=== PATIENT | male | born 1975 | race Caucasian/White ===

== ENCOUNTER → 2024-09-25 13:53 | Outpatient (BNVA) | payer OTHER, SELFPAY | DX: R50.9 Fever, unspecified (principal) | CPT/HCPCS: 87400 ==

== ENCOUNTER → 2024-10-03 08:54 | Outpatient (BNVA) | payer OTHER, SELFPAY | PROVIDERS: PCP Family Medicine; Visit Provider Family Medicine | DX: Z13.6 Encounter for screening for cardiovascular disorders (principal) | CPT/HCPCS: 80053; 80061; 85025 ==

== ENCOUNTER 2024-10-23 13:10 | Outpatient (CLI) | payer OTHER, SELFPAY ==
--- NOTE | 2024-10-23 13:30 | CT_ITS ---
WS: [id number] LDCT LUNG CANCER SCREENING TECHNIQUE: Noncontrast CT of the chest with coronal and sagittal reformatted images. CLINICAL INFORMATION: screening COMPARISON: None. DLP: 72.31 mGy.cm DIvol: Mean CTDIvol: 1.30 (mGy) All CT scans at [facility] use at least one of these dose optimization techniques: automated exposure control; mA and/or kV adjustment per patient size (includes targeted exams where dose is matched to clinical indication); or iterative reconstruction. FINDINGS: Traction bronchiectasis with patchy opacities in the anterior LEFT upper lobe with subsegmental atelectasis. This is nonspecific but likely inflammatory. Adjacent calcified granuloma. Patchy micronodules in the RIGHT middle lobe. Additional patchy nodular opacities in the LEFT lower lobe likely infectious or inflammatory. Recommend 3-month follow-up. Tiny noncalcified nodule RIGHT lower lobe. Scattered calcified granulomas. Mild thoracic curve. Normal caliber thoracic aorta. Calcified LEFT hilar and AP window lymph nodes. Adrenal glands are normal. CT/CT lung screening [id number] IMPRESSION: LUNG-RADS: 3-Probably Benign FOLLOW UP: 3 Month LDCT
== END 2024-10-23 13:11 | disposition home or self-care (01) ==
PROVIDERS: PCP Family Medicine; Visit Provider Family Medicine
DX: Z12.2 Encounter for screening for malignant neoplasm of respiratory organs (principal); F17.219 Nicotine dependence, cigarettes, with unspecified nicotine-induced disorders; J47.9 Bronchiectasis, uncomplicated; J98.11 Atelectasis; J84.10 Pulmonary fibrosis, unspecified; R91.8 Other nonspecific abnormal finding of lung field; M43.8X4 Other specified deforming dorsopathies, thoracic region; R59.0 Localized enlarged lymph nodes
CPT/HCPCS: 71271

== ENCOUNTER 2024-11-26 07:54 | Day surgery (SDC) | payer OTHER, SELFPAY ==
[2024-11-26 08:09] VITALS: BP 148/84; PULSE 75; RESP 18; TEMP 36.6; O2SAT 98; BMI 25.7
[2024-11-26] MEDS: sodium chloride 0.9% 1,000 ML 30 ML IV (08:17)
--- NOTE | 2024-11-26 08:29 | ANES.PREANE2 ---
Pre-Anesthetic Assessment Height/Weight: Height 1.85 m Weight 88.451 kg Temp Pulse Resp BP Pulse Ox O2 Del Method 97.9 F 75 18 148/84 98 Room Air 11/26/24 08:09 11/26/24 08:09 11/26/24 08:09 11/26/24 08:09 11/26/24 08:09 11/26/24 08:09 Preop Diagnosis: screening Operation Date: 11/26/24 09:00 Proposed Procedures p Colonoscopy 77275 [id number] Z12.11(Not Applicable) - Prosper Rose MD Was Beta David taken within 24 hours: N/A Was Clonidine taken within 24 hours: N/A Last intake: Intake Last Liquid Date 11/25/24 Last Liquid Time 23:00 Last Solid Date 11/24/24 Last Solid Time 19:00 Social Tobacco 1 pack(s) per day did not smoke today Exam alert, oriented x 3, clear to auscultation bilaterally and regular rate & rhythm Airway Submandibular: within normal limits Cervical ROM: within normal limits Mallampati: Class III Dentition: chipped Comments: Comments: full henriquez History/ROS No significant history except as noted Pulmonary Cough CV/HEM Hypertension Anesthetic Plan ASA status: 2 Anesthesia: MAC Risk of > 500 ml blood loss (7ml/kg in children): No Medications/Allergies Home Medications ?Medication ?Instructions ?Recorded ?Confirmed ?Last Taken ?Type No Known Home Medications 10/03/24 11/26/24 Unknown History Allergies Allergy/AdvReac Type Severity Reaction Status Date / Time No Known Allergies Allergy Unverified 10/11/24 09:18 Current Medications Generic Name Dose Route Start Last Admin Trade Name Freq PRN Reason Stop Dose Admin Sodium Chloride 1,000 mls @ 30 mls/hr 11/26/24 06:45 11/26/24 08:17 Sodium Chloride 0.9% IV 11/27/24 06:44 30 mls/hr .Q24H LOPEZ Administration PFSH Anesthesia Medical History Tobacco abuse counseling Tobacco use disorder, moderate, dependence Collar bone fracture Social History Smoking and tobacco/nicotine status: current every day tobacco/nicotine user (1 pack per day) cigarettes [ Other cigarette details: current 1 PPD. 35PY] Data Anesthesia Cardiac Studies: No Data to Display
--- NOTE | 2024-11-26 08:50 | W.PM.OPSFHP ---
Same Day Surgery H&P Indication for Procedure/HPI DATE OF PROCEDURE: November 26, 2024 CHIEF COMPLAINT/INDICATIONFOR SURGICAL PROCEDURE: screening colonoscopy PREOP DIAGNOSIS: screening colonoscopy PLANNED PROCEDURE: Operation Date: 11/26/24 09:00 Proposed Procedures p Colonoscopy [id number] G0121 Z12.11(Not Applicable) - Prosper Rose MD Medications/Allergies* Home Medications ?Medication ?Instructions ?Recorded ?Confirmed ?Type No Known Home Medications 10/03/24 11/26/24 History Allergies/Adverse Reactions Allergy/AdvReac Type Severity Reaction Status Date / Time No Known Allergies Allergy Unverified 10/11/24 09:18 Current Medications: Generic Name Dose Route Start Last Admin Trade Name Freq PRN Reason Stop Dose Admin Sodium Chloride 1,000 mls @ 30 mls/hr 11/26/24 06:45 11/26/24 08:17 Sodium Chloride 0.9% IV 11/27/24 06:44 30 mls/hr .Q24H LOPEZ Administration Pertinent History/Comorbid Conditions* Medical History (Updated 10/23/24 @ 16:45 by Evangelist Chen MD) Tobacco abuse counseling Tobacco use disorder, moderate, dependence Collar bone fracture Social History Smoking and tobacco/nicotine status: current every day tobacco/nicotine user (1 pack per day) cigarettes [ Other cigarette details: current 1 PPD. 35PY] Pertinent Exam Findings alert, oriented x 3, clear to auscultation bilaterally, regular rate & rhythm and procedure specific exam findings abdomen soft, nt, nd Recommendations Risks and benefits of procedure reviewed Surgery/Procedure today Other Plans: Proceed with colonoscopy Coding Level of Care Code Acute Code for g Fwd
[2024-11-26 09:08] VITALS: BP 104/72; PULSE 84; RESP 16; TEMP 36.2; O2SAT 98
--- NOTE | 2024-11-26 12:33 | ANE.PACU2 ---
Inpatient post-anesthesia follow up: Vital signs: Temperature 97.1 F Pulse Rate 84 Respiratory Rate 16 Blood Pressure 104/72 Pulse Oximetry 98 Oxygen Delivery Me thod Room Air Oxygen Flow Rate Fraction of Inspir ed Oxygen Hydration adequate: Yes Nausea and vomiting: No Pain level: 1 Mental status: Baseline
== END 2024-11-26 09:29 | disposition home or self-care (01) ==
PROVIDERS: PCP Family Medicine; Visit Provider Student in an Organized Health Care Education/Training Program
PROC: 0DJD8ZZ Inspection of Lower Intestinal Tract, Via Natural or Artificial Opening Endoscopic (ICD-10-PCS; CPT 45378; principal; 2024-11-26 09:00)
DX: Z12.11 Encounter for screening for malignant neoplasm of colon (principal); I10 Essential (primary) hypertension; F17.210 Nicotine dependence, cigarettes, uncomplicated
CPT/HCPCS: 45378; J2704; J3490; J7030

== ENCOUNTER 2025-01-23 12:41 | Outpatient (CLI) | payer OTHER, SELFPAY ==
--- NOTE | 2025-01-23 12:45 | CTR_ITS ---
PROCEDURE INFORMATION: Exam: CT Chest Without Contrast; Diagnostic Exam date and time: 01/23/2025 12:51 PM Age: 49 years old Clinical indication: Abnormal findings; Abnormal radiologic exam of lung or chest and lung mass or nodule; Not specified; Follow up to lung screening on 10-23-24; Additional info: Lung mass, lungrad 3, abnormal ldct scan TECHNIQUE: Imaging protocol: Diagnostic computed tomography of the chest without contrast. Radiation optimization: All CT scans at this facility use at least one of these dose optimization techniques: automated exposure control; mA and/or kV adjustment per patient size (includes targeted exams where dose is matched to clinical indication); or iterative reconstruction. COMPARISON: CT lung screening [id number] 10/23/2024 1:12 PM RADIATION DOSE METRICS: Total DLP (mGy-cm): 351.71 FINDINGS: Lungs: Calcified granuloma in the lingula. The left upper lobe/lingular and left lower infiltrates have entirely resolved. No new or progressive abnormality. Pleural spaces: Unremarkable. No pneumothorax. No pleural effusion. Heart: Unremarkable. No cardiomegaly. No pericardial effusion. Coronary arteries: No coronary artery calcifications. Lymph nodes: Calcified hilar lymph nodes. Vasculature: Unremarkable. No aortic aneurysm. Bones/joints: Unremarkable. No acute fracture. Soft tissues: Unremarkable. CT/CT chest [facility] [id number] IMPRESSION: Resolved pulmonary infiltrates.
== END 2025-01-23 12:42 | disposition home or self-care (01) ==
LOC: RAD 12:44
PROVIDERS: PCP Family Medicine; Visit Provider Family Medicine
DX: R91.8 Other nonspecific abnormal finding of lung field (principal); J84.10 Pulmonary fibrosis, unspecified; R59.0 Localized enlarged lymph nodes
CPT/HCPCS: 71250